=== PATIENT | male | born 1985 | race African-American/Black ===

== ENCOUNTER 2022-10-07 21:08 | Emergency (ER) | payer OTHER ==
--- NOTE | 2022-10-07 22:14 | RAD REPORT ---
EXAM DESCRIPTION: RAD - Knee Right 3 View - 10/07/2022 10:05 pm CLINICAL HISTORY: Right knee pain status post injury FINDINGS: No fracture or dislocation is seen. If the patient continues to have symptoms to suggest occult fracture, ligamentous or injury MRI would be recommended
--- NOTE | 2022-10-07 22:22 | ER ---
Nurse's Notes [facility] Name: Ashish Rivera Age: 37 yrs Sex: Male : 1985 Arrival Date: 10/07/2022 Time: 21:08 Bed 14 Private MD: Diagnosis: Pain in right knee Presentation: 10/07 21:21 Chief complaint: Patient states: "1 hr ago i was playing basketball and I got hit in mb9 the right knee. I can't walk on it.". Coronavirus screen: Vaccine status: Patient reports receiving the 2nd dose of the covid vaccine. Ebola Screen: No symptoms or risks identified at this time. Initial Sepsis Screen: Does the patient meet any 2 criteria? No. Patient's initial sepsis screen is negative. Does the patient have a suspected source of infection? No. Patient's initial sepsis screen is negative. Risk Assessment: Do you want to hurt yourself or someone else? Patient reports no desire to harm self or others. Onset of symptoms was October 07, 2022. 21:21 Method Of Arrival: Wheelchair 9 21:21 Acuity: EDEN 4 mb9 Triage Assessment: 21:23 Pain: Complains of pain in right knee Pain radiates to right leg Pain currently is 5 mb9 out of 10 on a pain scale. Quality of pain is described as throbbing. Neuro: Level of Consciousness is awake, alert, obeys commands. Respiratory: Airway is patent Respiratory effort is even, unlabored, Respiratory pattern is regular, symmetrical. Musculoskeletal: Range of motion: limited in right knee Reports pain in right leg. Historical: - Allergies: 21:23 No Known Allergies; mb9 - Home Meds: 21:23 None [Active]; mb9 - PMHx: 21:23 None; mb9 - PSHx: 21:23 None; mb9 - Immunization history:: Adult Immunizations up to date. - Social history:: Smoking status: Patient denies any tobacco usage or history of. Screenin:26 [facility] ED Fall Risk Assessment (Adult) History of falling in the last 3 months, vg1 including since admission Yes- single mechanical fall (1 pt) Confusion or Disorientation No (0 pts) Intoxicated or Sedated No (0 pts) Impaired Gait Yes (1 pt) Mobility Assist Device Used No (0 pt) Altered Elimination No (0 pt) Score/Fall Risk Level 0 - 2 = Low Risk Oriented to surroundings, Maintained a safe environment, Educated pt \\T\\ family on fall prevention, incl call for assistance when getting out of bed. 22:26 Abuse screen: Denies threats or abuse. Denies injuries from another. Nutritional vg1 screening: No deficits noted. Tuberculosis screening: No symptoms or risk factors identified. Assessment: 22:26 General: Appears uncomfortable, Behavior is cooperative. Pain: Complains of pain in vg1 right knee Pain currently is 8 out of 10 on a pain scale. Musculoskeletal: Circulation, motion, and sensation intact. Swelling present in right knee. Vital Signs: 21:21 Resp 18; Temp 97.9; Pulse Ox 100% ; Weight 79.38 kg; Height 5 ft. 5 in. ; Pain 10/10; mb9 21:24 BP 159 / 69; Pulse 87; mb9 22:26 BP 136 / 86; Pulse 89; Resp 16; Pulse Ox 100% on R/A; vg1 21:21 Body Mass Index 29.12 (79.38 kg, 165.1 cm) mb9 21:21 Pain Scale: Adult mb9 ED Course: 21:15 Patient arrived in ED. ag3 21:17 Yolanda Goodwin FNP-C [facility]. kb 21:17 Nora Mera MD is Attending Physician. kb 21:23 Triage completed. mb9 21:23 Arm band placed on. mb9 21:45 Ginny Kiser, RN is Primary Nurse. vg1 22:07 Knee Right 3 View XRAY In Process Unspecified. EDMS 22:26 Patient has correct armband on for positive identification. Bed in low position. Call vg1 light in reach. Side rails up X 1. 22:26 No provider procedures requiring assistance completed. Patient did not have IV access vg1 during this emergency room visit. Administered Medications: 22:52 Drug: HYDROcodone-acetaminophen PO 5 mg-325 mg 1 tabs Route: PO; vg1 Medication: 22:26 VIS not applicable for this client. vg1 Outcome: 22:22 Discharge ordered by . kb 23:02 Discharged to home via wheelchair, with family. vg1 23:02 Condition: good 23:02 Discharge instructions given to patient, family, Instructed on discharge instructions, follow up and referral plans. medication usage, Demonstrated understanding of instructions, follow-up care, medications, Prescriptions given X 1. 23:03 Patient left the ED. vg1 Signatures: Dispatcher [employer] Yolanda Medina, RANDAL BRIZUELA-Carmen Noyola Victoria, RN RN vg1 Kelsi Fletcher RN RN mb9
--- NOTE | 2022-10-07 22:23 | EDPHYS ---
Physician Documentation [facility] Name: Ashish Rivera Age: 37 yrs Sex: Male : 1985 Arrival Date: 10/07/2022 Time: 21:08 Bed 14 Private MD: ED Physician Nora Mera HPI: 10/07 23:08 This 37 yrs old Black Male presents to ER via Wheelchair with complaints of Knee Injury.kb 23:08 The patient presents with decreased range of motion, an injury, pain, swelling, kb tenderness. The complaints affect the right knee. Context: The problem was sustained at a sports field or court, resulted from playing sports, basketball, the patient is not able to bear weight, the patient is not able to ambulate, Problem is a result from a previous injury: No. Onset: The symptoms/episode began/occurred just prior to arrival. Modifying factors: The symptoms are alleviated by nothing. the symptoms are aggravated by movement, weight bearing. Associated signs and symptoms: Pertinent positives: swelling, Pertinent negatives calf tenderness, fever, nausea, numbness, rash, tingling, vomiting, warmth, weakness. Treatment prior to arrival includes: no previous treatment. Severity of symptoms: At their worst the symptoms were moderate, in the emergency department the symptoms are unchanged. The patient has not experienced similar symptoms in the past. The patient has not recently seen a physician. Historical: - Allergies: 21:23 No Known Allergies; mb9 - Home Meds: 21:23 None [Active]; mb9 - PMHx: 21:23 None; mb9 - PSHx: 21:23 None; mb9 - Immunization history:: Adult Immunizations up to date. - Social history:: Smoking status: Patient denies any tobacco usage or history of. ROS: 23:07 Constitutional: Negative for fever, chills, and weight loss. kb 23:07 MS/extremity: Positive for pain, of the right knee. 23:07 All other systems are negative. Exam: 23:07 Constitutional: This is a well developed, well nourished patient who is awake, alert, kb and in no acute distress. Head/Face: Normocephalic, atraumatic. ENT: Moist Mucous membranes Cardiovascular: Regular rate and rhythm with a normal S1 and S2. No gallops, murmurs, or rubs. No pulse deficits. Respiratory: Respirations even and unlabored. No increased work of breathing. Talking in full sentences Skin: Warm, dry with normal turgor. Normal color. Neuro: Awake and alert, GCS 15, oriented to person, place, time, and situation. Moves all extremities. Normal gait. 23:07 Musculoskeletal/extremity: Extremities: grossly normal except: noted in the right knee: decreased ROM, pain, swelling, tenderness, ROM: limited active range of motion due to pain, in the right knee, Circulation is intact in all extremities. Sensation intact. Weight bearing: is unable to bear weight. Vital Signs: 21:21 Resp 18; Temp 97.9; Pulse Ox 100% ; Weight 79.38 kg; Height 5 ft. 5 in. ; Pain 10/10; mb9 21:24 BP 159 / 69; Pulse 87; mb9 22:26 BP 136 / 86; Pulse 89; Resp 16; Pulse Ox 100% on R/A; vg1 21:21 Body Mass Index 29.12 (79.38 kg, 165.1 cm) mb9 21:21 Pain Scale: Adult mb9 MDM: 21:17 Patient medically screened. kb 23:08 Differential diagnosis: contusion, fracture, sprain, strain. Data reviewed: vital kb signs, nurses notes. Counseling: I had a detailed discussion with the patient and/or guardian regarding: the historical points, exam findings, and any diagnostic results supporting the discharge/admit diagnosis, radiology results, the need for outpatient follow up, a family practitioner, to return to the emergency department if symptoms worsen or persist or if there are any questions or concerns that arise at home. 10/07 21:21 Order name: Knee Right 3 View XRAY; Complete Time: 22:22 kb 10/07 22:22 Order name: Lopez Wrap; Complete Time: 22:52 kb 10/07 22:22 Order name: Crutches; Complete Time: 22:52 kb Administered Medications: 22:52 Drug: HYDROcodone-acetaminophen PO 5 mg-325 mg 1 tabs Route: PO; vg1 Disposition Summary: 10/07/22 22:22 Discharge Ordered Location: Home kb Condition: Stable kb Diagnosis - Pain in right knee kb Followup: kb - With: Emergency Department - When: As needed - Reason: Worsening of condition Followup: kb - With: Private Physician - When: 2 - 3 days - Reason: Recheck today's complaints, Continuance of care, Re-evaluation by your physician Discharge Instructions: - Discharge Summary Sheet kb - Acute Knee Pain, Adult, [id number] kb Forms: - Medication Reconciliation Form kb - Thank You Letter kb - Antibiotic Education kb - Prescription Opioid Use kb Prescriptions: - Diclofenac Sodium 75 mg Oral tablet,delayed release (DR/EC) - take 1 tablet by ORAL route 2 times per day As needed; 30 tablet; Refills: 0, kb Product Selection Permitted Signatures: Dispatcher [employer] EDYolanda Mayberry, BOILER/CHILLER TECHNICIAN-C BOILER/CHILLER TECHNICIAN-Ginny Haro, RN RN vg1 Kelsi Fletcher RN RN mb9
[2022-10-07] MEDS ORDERED: HYDROCODONE/APAP 5/325 MG TAB ONE (22:48)
[2022-10-07 23:10] VITALS: TEMP 97.9; O2SAT 100
[2022-10-07 23:13] VITALS: BP 136/86
== END 2022-10-07 23:03 | disposition home or self-care (01) ==
LOC: ER 21:08
DX: M25.561 Pain in right knee (principal)